=== PATIENT | female | born 1990 | race Caucasian/White ===

== ENCOUNTER → 2017-10-03 | Day surgery (SDC) | payer OTHER ==
[~2017-10-03] VITALS: Ht 167.6 cm; Wt 79.0 kg
[2017-10-03] VITALS (10 sets, daily range): BP systolic 98–131; BP diastolic 51–73; PULSE 75–99; RESP 12–20; TEMP 96.9–98.2; O2SAT 96–100
[~2017-10-03] MED LIST: BUPIVACAINE/EPINEPHRINE 0.25% 50 ML VIAL ONE; CHLORHEXIDINE GLUCONATE 2 % 1 PACK (2 CLOTHS) TOPICAL PRN; CYCL-36 PO; DO NOT ADM ANY ANTICOAGULANT DRUGS PRN; GLYCOPYRROLATE 1 MG/5 ML SYRINGE IV PUSH ONE; HOLY BASIL; HOLY BASIL PO; HYDROmorphone HCL PF 1 MG/ML VIAL IV PUSH ONE; HYDROmorphone HCL PF 2 MG/ML VIAL IV ONE; HYDROmorphone HCL PF 2 MG/ML VIAL IV PUSH ONE; IOHEXOL 350 MG/ML 10 ML VIAL (for RAD DIAG) IVCONTRAST ONE; KETOROLAC TROMETHAMINE 30 MG/ML (IVP) VIAL IV PUSH ONE; KETOROLAC TROMETHAMINE 30 MG/ML (IVP) VIAL IV PUSH PRN; KETOROLAC TROMETHAMINE 30 MG/ML (IVP) VIAL ONE; LACTATED RINGER'S 1000 ML IV PRN; LORT5TAB PO; METOPROLOL TARTRATE 25 MG TAB PO PRN; MIDAZOLAM HCL 2 MG/2 ML VIAL ONE; MORPHINE SULFATE 2 MG/ML INJ IV PUSH ONE; MORPHINE SULFATE 8 MG/ML INJ IV PUSH PRN; NAPR550 PO; NEOSTIGMINE 5 MG/5 ML SYRINGE IV PUSH ONE; ONDANSETRON HCL 4 MG/2 ML VIAL IV ONE; ONDANSETRON HCL 4 MG/2 ML VIAL IVP ONE; PHENYLEPH/NS 1000 MCG/10 ML SYR IV ONE; POVIDONE IODINE 5% (ANTISEPSIS KIT) 4 APPLICATIONS EACH NARE PRN; PROPOFOL 200 MG/20 ML AMP IV ONE; ROCURONIUM INJ 50 MG/5 ML SYRINGE IV PUSH ONE; SODIUM CHLOR 0.9% 1000 ML INJ 1,000 ML IV SCH; SODIUM CHLORID 0.9% 500 ML IV PRN; SODIUM CHLORIDE 0.9% FLUSH 10 ML FLUSH IV FLUSH PRN; SULF-154 PO; VENL75TA PO; oxyCODONE/ACETAMINOPHEN 5 MG/325 MG TAB PO PRN
--- NOTE | 2017-10-03 04:34 | PD ---
HPI Chief Complaint: Flank/Kidney Pain Time Seen by Provider: 04:30 Travel History International Travel<30 days: No Contact w/Intl Traveler<30days: No Traveled to known affect area: No History of Present Illness HPI 27-year-old female presents to the emergency department by private transportation for evaluation of severe right lower quadrant abdominal pain 4 hours. Symptoms sudden onset associated with nausea or vomiting. Patient denies any hematemesis or coffee-ground emesis. No report of diarrhea. No report of urinary frequency urgency flank pain or hematuria. Patient is status post cholecystectomy. Patient felt well and 9 PM and had a normal meal no recent anorexia mother states she last saw her around 9 PM and she was fine and then called at 1 AM seizures and severe pain. Patient did take acetaminophen and ibuprofen at midnight without symptom relief. Patient rates pain 10 over 10 in intensity. No prior history of kidney stones. Patient has no known history of ovarian cyst. Patient denies ; states that she has had an IUD in place since 2014. Patient is unable to identify exacerbating or alleviating factors and is unable to find position of comfort. [facility] Past Medical History Narrative Medical Ovarian cysts, anxiety depression; cholecystectomy; nursing notes reviewed Diabetes: No Diminished Hearing: No Immune Disorder: No Immunizations Current: Yes ?: Not LMP: IUD IN PLACE Ovarian Cysts: Yes ("uterine cysts") Social History Alcohol Use: No Tobacco Use: No Allergies-Medications (Allergen,Severity, Reaction): Coded Allergies: green pepper (Unverified Allergy, Severe, RASH, 10/03/17) RASH FROM HANDLING Reported Meds & Prescriptions Reported Meds & Active Scripts Active Reported Effexor (Venlafaxine HCl) 75 Mg Tab 75 Mg PO DAILY Review of Systems Except as stated in HPI: all other systems reviewed are Neg Physical Exam Narrative GENERAL: Well-developed well-nourished female in obvious discomfort and crying. No respiratory distress SKIN: Warm and dry. HEAD: Normocephalic. EYES: No scleral icterus. No injection or drainage. NECK: Supple, trachea midline. No JVD or lymphadenopathy. CARDIOVASCULAR: Regular rate and rhythm without murmurs, gallops, or rubs. RESPIRATORY: Breath sounds equal bilaterally. No accessory muscle use. GASTROINTESTINAL: Abdomen soft, marked tenderness to direct palpation right lower quadrant with voluntary guarding no rebound, nondistended. Pelvic exam: Normal external exam no redness no induration no lesions: Speculum exam scant yellow mucus cervical os closed no blood no tissue no clots; bimanual exam right vaginal vault no cervical motion tenderness no uterine enlargement. MUSCULOSKELETAL: No cyanosis, or edema. BACK: Nontender without obvious deformity. No CVA tenderness. Data Data Last Documented VS Vital Signs Date Time Temp Pulse Resp B/P (MAP) Pulse Ox O2 Delivery O2 Flow Rate FiO2 10/03/17 06:30 81 18 113/73 (86) 98 Room Air 10/03/17 03:51 97.8 Orders Orders Complete Blood Count With Diff (10/03/17 04:30) Comprehensive Metabolic Panel (10/03/17 04:30) Lipase (10/03/17 04:30) Urinalysis - C+S If Indicated (10/03/17 04:30) Ct Abd/Pel W Iv Contrast(Rout) (10/03/17 04:30) Iv Access Insert/Monitor (10/03/17 04:30) Ecg Monitoring (10/03/17 04:30) Oximetry (10/03/17 04:30) Ondansetron Inj (Zofran Inj) (10/03/17 04:30) Sodium Chlor 0.9% 1000 Ml Inj (Ns 1000 M (10/03/17 04:30) Sodium Chloride 0.9% Flush (Ns Flush) (10/03/17 04:30) Ed Urine Pregnancytest Poc (10/03/17 04:30) Morphine Inj (Morphine Inj) (10/03/17 04:30) Iohexol 350 Inj (Omnipaque 350 Inj) (10/03/17 05:48) Ketorolac Inj (Toradol Inj) (10/03/17 06:00) Type And Screen (10/03/17 06:25) Beta Hcg (Quant/Titer) (10/03/17 06:25) Us Pelvis Comp W Dop Transvag (10/03/17 ) Hydromorphone Pf Inj (Dilaudid Pf Inj) (10/03/17 06:45) Sodium Chlor 0.9% 1000 Ml Inj (Ns 1000 M (10/03/17 06:45) Wet Prep Profile (10/03/17 06:52) Gc And Chlamydia Pcr (10/03/17 06:52) Labs Laboratory Tests Test 10/03/17 04:30 10/03/17 05:25 White Blood Count 10.4 TH/MM3 Red Blood Count 4.46 MIL/MM3 Hemoglobin 12.1 GM/DL Hematocrit 37.6 % Mean Corpuscular Volume 84.3 FL Mean Corpuscular Hemoglobin 27.1 PG Mean Corpuscular Hemoglobin Concent 32.2 % Red Cell Distribution Width 12.8 % Platelet Count 323 TH/MM3 Mean Platelet Volume 7.4 FL Neutrophils (%) (Auto) 86.8 % Lymphocytes (%) (Auto) 9.7 % Monocytes (%) (Auto) 3.1 % Eosinophils (%) (Auto) 0.2 % Basophils (%) (Auto) 0.2 % Neutrophils # (Auto) 9.1 TH/MM3 Lymphocytes # (Auto) 1.0 TH/MM3 Monocytes # (Auto) 0.3 TH/MM3 Eosinophils # (Auto) 0.0 TH/MM3 Basophils # (Auto) 0.0 TH/MM3 CBC Comment DIFF FINAL Differential Comment Blood Urea Nitrogen 9 MG/DL Creatinine 0.65 MG/DL Random Glucose 134 MG/DL Total Protein 8.5 GM/DL Albumin 4.5 GM/DL Calcium Level 9.0 MG/DL Alkaline Phosphatase 75 U/L Aspartate Amino Transf (AST/SGOT) 12 U/L Alanine Aminotransferase (ALT/SGPT) 32 U/L Total Bilirubin 0.3 MG/DL Sodium Level 136 MEQ/L Potassium Level 3.7 MEQ/L Chloride Level 105 MEQ/L Carbon Dioxide Level 22.8 MEQ/L Anion Gap 8 MEQ/L Estimat Glomerular Filtration Rate 109 ML/MIN Lipase 83 U/L Urine Color YELLOW Urine Turbidity SLIGHT Urine pH 8.0 Urine Specific [place] 1.022 Urine Protein 30 mg/dL Urine Glucose (UA) NEG mg/dL Urine Ketones 80 OR GREATER mg/dL Urine Occult Blood TRACE Urine Nitrite NEG Urine Bilirubin NEG Urine Leukocyte Esterase NEG Urine RBC 4-9 /hpf Urine Squamous Epithelial Cells 0-5 /hpf Urine Amorphous Sediment SMALL Urine Bacteria FEW /hpf Urine Mucus MOD /lpf Microscopic Urinalysis Comment CULT NOT INDICATED MDM Medical Decision Making Medical Screen Exam Complete: Yes Emergency Medical Condition: Yes Medical Record Reviewed: Yes Interpretation(s) POC hcg: negative UA: grossly wnl Last Impressions Abdomen/Pelvis CT 10/03/17 0430 Signed Impressions: Service Date/Time: Tuesday, October 03, 2017 05:44 - CONCLUSION: 1. 11.2 x 9.3 cm complex solid and fluid mass in the deep pelvis of unknown etiology. Differential diagnosis includes neoplasm and endometrioma/large hemorrhagic cyst. Ed Burton MD CBC & BMP Diagram 10/03/17 04:30 Total Protein 8.5 H, Albumin 4.5, Calcium Level 9.0, Alkaline Phosphatase 75, Aspartate Amino Transf (AST/SGOT) 12 L, Alanine Aminotransferase (ALT/SGPT) 32, Total Bilirubin 0.3 Vital Signs Date Time Temp Pulse Resp B/P (MAP) Pulse Ox O2 Delivery O2 Flow Rate FiO2 10/03/17 06:30 81 18 113/73 (86) 98 Room Air 10/03/17 04:55 18 100 Room Air 10/03/17 04:55 18 10/03/17 04:25 81 18 10/03/17 03:51 97.8 75 12 111/64 (80) 98 Differential Diagnosis Right lower quadrant pain, renal colic, ruptured ovarian cyst, ovarian torsion, ectopic , atypical appendicitis Narrative Course IV access obtained specimens collected and sent for resulting patient administered morphine 4 mg IV Zofran 4 mg IV [address] abdomen and pelvis ordered Patient given additional IV fluids Urinalysis no acute abnormality CBC is automated differential values in normal range Patient requesting additional pain medication; patient to CT Patient's return from CAT scan and reports increasing pain Toradol [address] abdomen and pelvis resulted and identified to have an 11 x 9 cm mass solid with fluid concerning for malignancy versus large hemorrhagic ovarian cyst versus endometrioma; pelvic exam performed. [id number] hCG negative; quantitative hCG ordered type and screen ordered and stat pelvic ultrasound ordered; vital signs remained in normal range. Heart rate 77; blood pressure 124/71; room air O2 saturation 100%; respiratory rate 18 @ 7:16 care signed over to Dr Johnson for US follow up and MANAGER INFUSION disposition Physician Communication Physician Communication call placed to Medical Lab Technician MANAGER INFUSION: Lesley Stephens MD Oct 03, 2017 04:34
[2017-10-03 05:02] LABS: AUTOMATED NEUTROPHIL # 9.1 TH/MM3 (1.8-7.7); BASOPHIL % 0.2 % (0.0-2.0); EOSINOPHIL % 0.2 % (0.0-4.0); HEMATOCRIT 37.6 % (35.0-46.0); HEMOGLOBIN 12.1 GM/DL (11.6-15.3); LYMPH % 9.7 % (9.0-44.0); MEAN CELL VOLUME 84.3 FL (80.0-100.0); MEAN CORPUSCULAR HEMOGLOBIN 27.1 PG (27.0-34.0); MEAN CORPUSCULAR HGB CONC 32.2 % (32.0-36.0); MEAN PLATELET VOLUME 7.4 FL (7.0-11.0); MONO % 3.1 % (0.0-8.0); MONOCYTE # 0.3 TH/MM3 (0-0.9); NEUT % 86.8 % (16.0-70.0); PLATELET COUNT 323 TH/MM3 (150-450); RED BLOOD COUNT 4.46 MIL/MM3 (4.00-5.30); RED CELL DISTRIBUTION WIDTH 12.8 % (11.6-17.2); WHITE BLOOD COUNT 10.4 TH/MM3 (4.0-11.0)
[2017-10-03 05:12] LABS: CHLORIDE 105 MEQ/L (98-107); SODIUM (NA) 136 MEQ/L (136-145)
[2017-10-03 05:17] LABS: ALBUMIN 4.5 GM/DL (3.4-5.0); BICARBONATE 22.8 MEQ/L (21.0-32.0); BLOOD UREA NITROGEN 9 MG/DL (7-18); GLUCOSE,RANDOM 134 MG/DL (74-106); LIPASE 83 U/L (73-393)
[2017-10-03 05:20] LABS: ALT (GPT) 32 U/L (10-53); AST (GOT) 12 U/L (15-37); CREATININE 0.65 MG/DL (0.50-1.00); GLOMERULAR FILTRATION RATE 109 ML/MIN (>89)
[2017-10-03 05:21] LABS: TOTAL BILIRUBIN ADULT 0.3 MG/DL (0.2-1.0); TOTAL PROTEIN 8.5 GM/DL (6.4-8.2)
[2017-10-03 05:23] LABS: ALKALINE PHOSPHATASE 75 U/L (45-117)
[2017-10-03 05:36] LABS: BILIRUBIN, URINE NEG (NEG); GLUCOSE,URINE NEG (NEG); KETONE, URINE 80 OR GREATER mg/dL (NEG); NITRITE,URINE NEG (NEG); URINE LEUKOCYTE ESTERASE NEG (NEG)
[2017-10-03 05:56] LABS: BLOOD, URINE TRACE (NEG); URINE COLOR YELLOW (YELLW/STRAW)
[2017-10-03 05:57] LABS: BACTERIA, URINE FEW /hpf; MUCUS URINE MOD /lpf (OCC); SQUAMOUS EPITHELIAL CELL URINE 0-5 /hpf (0-5)
[2017-10-03 05:58] LABS: AMORPHOUS SEDIMENT, URINE SMALL
--- NOTE | 2017-10-03 06:22 | RADRPT ---
EXAM DATE/TIME: 10/03/2017 05:44 [facility] COMPARISON: No previous studies available for comparison. INDICATIONS : Right lower quadrant pain. IV CONTRAST: 100 cc Omnipaque 350 (iohexol) IV ORAL CONTRAST: No oral contrast ingested. RADIATION DOSE: 10.86 CTDIvol (mGy) MEDICAL HISTORY : None SURGICAL HISTORY : None. ENCOUNTER: Initial ACUITY: 1 day PAIN SCALE: 10/10 LOCATION: Right lower quadrant TECHNIQUE: Volumetric scanning of the abdomen and pelvis was performed. Using automated exposure control and ad justment of the mA and/or kV according to patient size, radiation dose was kept as low as reasonably achievable to obtain optimal diagnostic quality images. DICOM format image data is available electro nically for review and comparison. FINDINGS: Lung bases are clear. There is an 11.2 x 9.3 cm complex solid and fluid mass in the central to right pelvis possibly origin ating from the right adnexa. An intrauterine device is present. Reportedly test is negative . No left adnexal mass. There is moderate free fluid in the left paracolic gutter. No acute findings in the liver, spleen, adrenals, kidneys or pancreas. Postoperative cholecystectomy. CONCLUSION: 1. 11.2 x 9.3 cm complex solid and fluid mass in the deep pelvis of unknown etiology. Differential di agnosis includes neoplasm and endometrioma/large hemorrhagic cyst. Ed Burton MD on October 03, 2017 at 6:12 Board Certified Radiologist. This report was verified electronically.
--- NOTE | 2017-10-03 08:36 | RADRPT ---
EXAM DATE/TIME: 10/03/2017 07:49 [facility] COMPARISON: No previous studies available for comparison. INDICATIONS : Right sided pelvic pain. MEDICAL HISTORY : Ovarian cysts. [place]. Anxiety. SURGICAL HISTORY : section. ENCOUNTER: Initial ACUITY: 1 day PAIN SCORE: 7/10 LOCATION: Bilateral pelvis MEASUREMENTS: UTERUS: 11.2 x 4.8 x 3.0 cm ENDOMETRIAL STRIPE: 5 mm RIGHT OVARY: 7.8 x 8.2 x 9.2 cm LEFT OVARY: 2.5 x 2.5 x 1.8 cm FINDINGS: UTERUS: The myometrium has homogeneous echotexture without mass. IUD seen in the endometrium. Nabothian cyst noted measuring 1.6 cm. RIGHT OVARY: Complex cystic mass with solid component measures 8.1 x 7.3 x 6.2 cm. This almost completely occupies the right ovary. Normal-appearing flow to the right ovary is somewhat limited. LEFT OVARY: Ovary contains no mass or significant cystic lesion. Normal flow. MISCELLANEOUS: Trace free fluid. CONCLUSION: 1. Complex cystic mass right ovary is seen measuring 8.1 cm. This limits evaluation for flow to the r ight ovary. 2. Normal appearing left ovary. 3. Trace free fluid. Akshat Rodriguez MD on October 03, 2017 at 8:30 Board Certified Radiologist. This report was verified electronically.
--- NOTE | 2017-10-03 14:31 | PD ---
Physical Exam Date Seen by Provider: Oct 03, 2017 Time Seen by Provider: 07:00 Narrative Patient signed out to me by Dr. Ozuna at 7 AM, please see her note for further details, apparently coming in with right lower quadrant abdominal pains, CAT scan shows a large mass in the right lower quadrant suspected to be ovarian in nature, an ultrasound was ordered after discussions with Dr. Rice. Laboratory Tests Test 10/03/17 04:30 10/03/17 05:25 10/03/17 06:40 10/03/17 07:00 Neutrophils (%) (Auto) 86.8 % (16.0-70.0) Neutrophils # (Auto) 9.1 TH/MM3 (1.8-7.7) Random Glucose 134 MG/DL (74-106) Total Protein 8.5 GM/DL (6.4-8.2) Aspartate Amino Transf (AST/SGOT) 12 U/L (15-37) Urine Protein 30 mg/dL (NEG-TRACE) Urine Ketones 80 OR GREATER mg/dL (NEG) Urine Occult Blood TRACE (NEG) Urine RBC 4-9 /hpf (0-3) Urine Bacteria FEW /hpf (NONE) Urine Mucus MOD /lpf (OCC) Last 24 hours Impressions Abdomen/Pelvis CT 10/03/17 0430 Signed Impressions: Service Date/Time: Tuesday, October 03, 2017 05:44 - CONCLUSION: 1. 11.2 x 9.3 cm complex solid and fluid mass in the deep pelvis of unknown etiology. Differential diagnosis includes neoplasm and endometrioma/large hemorrhagic cyst. Ed Burton MD Pelvis Ultrasound 10/03/17 0000 Signed Impressions: Service Date/Time: Tuesday, October 03, 2017 07:49 - CONCLUSION: 1. Complex cystic mass right ovary is seen measuring 8.1 cm. This limits evaluation for flow to the right ovary. 2. Normal appearing left ovary. 3. Trace free fluid. Akshat Rodriguez MD Pelvic ultrasound returns showing complex cystic mass in the right ovary measuring 8 cm. Case was discussed with Dr. Rice who would like to admit the patient to same-day surgery to take her to the OR at the [facility]. 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 Arrangements were made for patient to be transferred for same-day surgery at the [facility]. Data Data Last Documented VS Vital Signs Date Time Temp Pulse Resp B/P (MAP) Pulse Ox O2 Delivery O2 Flow Rate FiO2 10/03/17 08:26 85 17 123/70 (87) 96 Room Air 10/03/17 07:27 98.2 Orders Orders Complete Blood Count With Diff (10/03/17 04:30) Comprehensive Metabolic Panel (10/03/17 04:30) Lipase (10/03/17 04:30) Urinalysis - C+S If Indicated (10/03/17 04:30) Ct Abd/Pel W Iv Contrast(Rout) (10/03/17 04:30) Iv Access Insert/Monitor (10/03/17 04:30) Ecg Monitoring (10/03/17 04:30) Oximetry (10/03/17 04:30) Ondansetron Inj (Zofran Inj) (10/03/17 04:30) Sodium Chlor 0.9% 1000 Ml Inj (Ns 1000 M (10/03/17 04:30) Sodium Chloride 0.9% Flush (Ns Flush) (10/03/17 04:30) Ed Urine Pregnancytest Poc (10/03/17 04:30) Morphine Inj (Morphine Inj) (10/03/17 04:30) Iohexol 350 Inj (Omnipaque 350 Inj) (10/03/17 05:48) Ketorolac Inj (Toradol Inj) (10/03/17 06:00) Type And Screen (10/03/17 06:25) Beta Hcg (Quant/Titer) (10/03/17 06:25) Hydromorphone Pf Inj (Dilaudid Pf Inj) (10/03/17 06:45) Sodium Chlor 0.9% 1000 Ml Inj (Ns 1000 M (10/03/17 06:45) Wet Prep Profile (10/03/17 06:52) Gc And Chlamydia Pcr (10/03/17 06:52) Us Pelvis Comp W Doppler (10/03/17 ) Hydromorphone Pf Inj (Dilaudid Pf Inj) (10/03/17 09:00) Hydromorphone Pf Inj (Dilaudid Pf Inj) (10/03/17 09:15) Admit Order (Ed Use Only) (10/03/17 09:13) Labs Laboratory Tests Test 10/03/17 04:30 10/03/17 05:25 10/03/17 06:40 10/03/17 07:00 White Blood Count 10.4 TH/MM3 Red Blood Count 4.46 MIL/MM3 Hemoglobin 12.1 GM/DL Hematocrit 37.6 % Mean Corpuscular Volume 84.3 FL Mean Corpuscular Hemoglobin 27.1 PG Mean Corpuscular Hemoglobin Concent 32.2 % Red Cell Distribution Width 12.8 % Platelet Count 323 TH/MM3 Mean Platelet Volume 7.4 FL Neutrophils (%) (Auto) 86.8 % Lymphocytes (%) (Auto) 9.7 % Monocytes (%) (Auto) 3.1 % Eosinophils (%) (Auto) 0.2 % Basophils (%) (Auto) 0.2 % Neutrophils # (Auto) 9.1 TH/MM3 Lymphocytes # (Auto) 1.0 TH/MM3 Monocytes # (Auto) 0.3 TH/MM3 Eosinophils # (Auto) 0.0 TH/MM3 Basophils # (Auto) 0.0 TH/MM3 CBC Comment DIFF FINAL Differential Comment Blood Urea Nitrogen 9 MG/DL Creatinine 0.65 MG/DL Random Glucose 134 MG/DL Total Protein 8.5 GM/DL Albumin 4.5 GM/DL Calcium Level 9.0 MG/DL Alkaline Phosphatase 75 U/L Aspartate Amino Transf (AST/SGOT) 12 U/L Alanine Aminotransferase (ALT/SGPT) 32 U/L Total Bilirubin 0.3 MG/DL Sodium Level 136 MEQ/L Potassium Level 3.7 MEQ/L Chloride Level 105 MEQ/L Carbon Dioxide Level 22.8 MEQ/L Anion Gap 8 MEQ/L Estimat Glomerular Filtration Rate 109 ML/MIN Lipase 83 U/L Urine Color YELLOW Urine Turbidity SLIGHT Urine pH 8.0 Urine Specific [place] 1.022 Urine Protein 30 mg/dL Urine Glucose (UA) NEG mg/dL Urine Ketones 80 OR GREATER mg/dL Urine Occult Blood TRACE Urine Nitrite NEG Urine Bilirubin NEG Urine Leukocyte Esterase NEG Urine RBC 4-9 /hpf Urine Squamous Epithelial Cells 0-5 /hpf Urine Amorphous Sediment SMALL Urine Bacteria FEW /hpf Urine Mucus MOD /lpf Microscopic Urinalysis Comment CULT NOT INDICATED Clue Cells (Wet Prep) NONE SEEN Vaginal Trichomonas (Wet Prep) NONE SEEN Vaginal Yeast (Wet Prep) NONE SEEN Chlamydia trachomatis DNA (PCR) NOT DETECTED Neisseria gonorrhoeae DNA (PCR) NOT DETECTED Human Chorionic Gonadotropin, Quant LESS THAN 1 MIU/ML MDM Medical Record Reviewed: Yes Supervised Visit with DAYSI: No Diagnosis Primary Impression: Ovarian mass, right Admitting Information Admitting Physician Requests: it Mariana Johnson MD Oct 03, 2017 14:31
--- NOTE | 2017-10-07 12:45 | MH ---
cc: AISHA SOLIS M.D. DATE OF ADMISSION: 10/03/2017 ADMITTING DIAGNOSIS: HISTORY OF PRESENT ILLNESS: Patient is a 27 year-old white female G1, P1, who does not get regular menses due to a Mirena placed 2014, who presented to the emergency room early in the morning, complaining of sudden onset of right lower quadrant pain starting at about 11 p.m. She tried to see if it would get better. It did not get better waking her up from sleep. She had a little bit of nausea and vomiting with it, no fever. She took some pain meds and did not have relief and she presented to the emergency room. Workup in the emergency room revealed that she has a complex right adnexal mass with possible solid component. PAST MEDICAL HISTORY: Anxiety disorder. PAST SURGICAL HISTORY: 1. Cholecystectomy. 2. x1. 3. At the time of , a right dermoid cyst removed. MEDICATIONS: Effexor. Mirena. ALLERGIES: NONE. SOCIAL HISTORY: No tobacco. Occasional alcohol. No drug use. 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 FAMILY HISTORY: Pertinent for Pott's disease. SET UP AND CHARGER HISTORY: No abnormal Pap. No STDs. OBSTETRICAL HISTORY: x1 secondary to a failed induction for preeclampsia. PHYSICAL EXAMINATION: Vital signs stable. She is afebrile. She is resting in bed. CHEST: Clear to auscultation bilaterally. CARDIAC: Regular rate and rhythm without murmurs, rubs, or gallops. ABDOMEN: Soft. There are bowel sounds. It is nondistended. It is tenderness, especially in the right lower quadrant, slight rebound, slight guarding. PELVIC: Fullness in the right adnexa, very tender. No cervical motion tenderness. Uterus palpates normal size. No left adnexal tenderness. LABORATORY VALUES: Include a negative beta-hCG, stable hematocrit. Ultrasound and CT scan which suggest about an 8 cm right adnexal complex mass, possible solid components, no free fluid. ASSESSMENT AND PLAN: Acute pelvic pain with right adnexal mass. The plan will be for diagnostic laparoscopy and treatment of the problem. MD LOU Hughes/ELIU /12:17 PM /12:26 PM
--- NOTE | 2017-10-07 17:55 | MP ---
cc: AISHA SOLIS M.D. DATE OF SURGERY: 10/03/2017. PREOPERATIVE DIAGNOSIS: Suspected right complex adnexal mass with pelvic pain. POSTOPERATIVE DIAGNOSIS: Ruptured right hemorrhagic cyst with ovarian torsion. OPERATIVE PROCEDURE PERFORMED: Diagnostic laparoscopy with right salpingo-oophorectomy and evacuation of hemoperitoneum. OPERATING SURGEON: Aisha Solis MD. ANESTHESIA: General endotracheal anesthesia. ESTIMATED BLOOD LOSS: Blood loss really was none; however, there was a hemoperitoneum of about 500 cc in the pelvis. COMPLICATIONS: None. FINDINGS: A torsed right tube and ovary twisted about three times, edematous with a ruptured hemorrhagic cyst at the right ovary with the ovary enlarged measuring about 8 cm with a large amount of blood clot and hemoperitoneum, I would say about 500 cc. Normal left tube and ovary. Normal uterus. COMPLICATIONS: None. DESCRIPTION OF THE PROCEDURE IN DETAIL: After the proper consents were obtained, the patient was taken to the operating room where general endotracheal anesthesia was applied. She was then placed in the dorsal position and sterilely prepped and draped and a Steele catheter was placed. At this time, Lidocaine with epinephrine solution was placed in the umbilicus. We made a 5 mm incision in the umbilicus and entered into the abdominopelvic cavity using a 5 mm trocar under direct visualization without difficulty. We insufflated to an adequate level of pneumoperitoneum. Inspection of the cavity revealed hematoperitoneum with large blood clot and a torsed right ovary with a ruptured hemorrhagic cyst. At this time, I placed two more 5 mm trocars in the bilateral lower quadrants mid axillary line without difficulty. We then went ahead and untwisted the right ovary which was twisted three times. The infundibulopelvic ligament was easily identified, I came across it using the En-Seal device and through the broad ligament using the En-Seal device and across the utero-ovarian ligament using the En-Seal device and across the tube to separate the complete right adnexa. At this time, I went ahead and made the umbilical incision into a 10/12 about a centimeter long incision, placed a 10/12 trocar and used the EndoCatch to scoop up the right tube and ovary and a lot of the blood clots. We brought that up through the umbilical incision and we were able to remove that without difficulty. We then placed the suction board mixer tender in through one of the 5 mm trocars and irrigated out the abdominopelvic cavity completely sucking out all the remaining blood clots and blood. Inspection of the surgical site revealed it to be hemostatic. The left tube and ovary were normal. The uterus was normal. I went ahead and removed our instruments and desufflated the abdomen. We closed the umbilical incision using a 0 Vicryl in a running fashion of the fascia. We closed the skin with 4-0 Monocryl in a subcu fashion. Counts were correct and the patient was stable to the recovery room. MD LOU Hughes/ANDRE /12:12 PM /5:41 PM
== END | disposition home or self-care (01) ==
LOC: PHED 03:45 → HSDI 11:11
PROVIDERS: ATTEND Obstetrics & Gynecology
DX: N83.201 Unspecified ovarian cyst, right side (principal); N83.511 Torsion of right ovary and ovarian pedicle; K66.1 Hemoperitoneum
CPT/HCPCS: 00840; 58661; 74177; 76856; 80053; 81001; 83690; 84702; 84703; 85025; 86850; 86900; 86901; 87210; 87491; 87591; 88305; 93975; 99285; J1170; J1885; J2250; J2270; J2405; J3010; J7030; Q9967; J2370; J2710